=== PATIENT | male | born 1980 | race Caucasian/White ===

== ENCOUNTER 2021-09-13 23:45 | Emergency (ER) | payer OTHER ==
[~2021-09-13 23:45] MED LIST: NORCO 5-325 TA1 EACH PO
[2021-09-14 02:00] LABS: HEMOGLOBIN 15.1 gm/dl (14.0-17.5); RED BLOOD COUNT 5.22 M/UL (4.20-5.50); WHITE BLOOD COUNT 5.6 K/UL (4.5-11.0)
[2021-09-14 02:06] LABS: BUN/CREATININE RATIO 11 (0-10)
[2021-09-14] MEDS ORDERED: OMEPRAZOLE10 MG PO (04:35)
[2021-09-14] MEDS ORDERED: CARAFATE1 GM PO (04:35)
== END 2021-09-14 04:38 | disposition home or self-care (01) ==
LOC: ER1 23:45
PROVIDERS: Physician Assistant
DX: K29.70 Gastritis, unspecified, without bleeding (principal); Z90.89 Acquired absence of other organs
CPT/HCPCS: 80053; 82550; 82553; 83605; 83690; 83874; 84484; 85025; 99284; Q9967